=== PATIENT | male | born 1995 | race Caucasian/White ===

== ENCOUNTER 2018-08-19 10:12 | Emergency (ER) | payer OTHER ==
[2018-08-19 10:24] VITALS: PULSE 75; RESP 20; O2SAT 99
--- NOTE | 2018-08-19 12:22 | C.PDOC ---
History Of Present Illness 22 year old male presents to ED with complaint of pain to the right lower back that goes down the right buttock and to the right thigh. Patient states that he has had this pain intermittently for last couple of years. He states that the pain became worse yesterday and that is why he decided to come to the ED. Patient denies trauma, dysuria, incontinence, and retention. Time Seen by Provider: 08/19/18 11:16 Chief Complaint (Nursing): Lower Extremity Problem/Injury History Per: Patient History/Exam Limitations: no limitations Onset/Duration Of Symptoms: Days (1), Intermittent Episodes Current Symptoms Are (Timing): Still Present Past Medical History Reviewed: Historical Data, Nursing Documentation, Vital Signs Vital Signs: Last Vital Signs Temp 98.4 F 08/19/18 10:22 Pulse 75 08/19/18 10:22 Resp 20 08/19/18 10:22 BP 116/76 08/19/18 10:22 Pulse Ox 99 08/19/18 10:22 - Medical History PMH: No Chronic Diseases Surgical History: No Surg Hx Family History: States: Unknown Family Hx - Social History Hx Alcohol Use: No Hx Substance Use: No - Immunization History Hx Tetanus Toxoid Vaccination: No Hx Influenza Vaccination: No Review Of Systems Constitutional: Negative for: Fever, Chills, Weakness Genitourinary: Negative for: Dysuria, Incontinence, Other (retention) Musculoskeletal: Positive for: Back Pain (right lower back radiating into the right buttock ), Leg Pain (right thigh) Neurological: Negative for: Weakness, Numbness, Dizziness Physical Exam - Physical Exam Appears: Well, Non-toxic, No Acute Distress Skin: Normal Color, Warm, Dry Head: Atraumatic, Normacephalic Neck: Normal, Supple Chest: Symmetrical, No Deformity Respiratory: No Accessory Muscle Use Back: Straight Leg Raising (positive at 60 degrees) Extremity: Tenderness (posterior right buttock) Neurological/Psych: Oriented x3, Normal Speech, Normal Cognition ED Course And Treatment O2 Sat by Pulse Oximetry: 99 (in RA) - Other Rad L-Spine X-ray X-Ray: Interpreted by Me, Viewed By Me Interpretation: Accession No. : [id number]. Patient Name / ID : CESAR Nino / [id number]. Exam Date : 08/19/2018 11:42:51 ( Approved ). Study Comment : Sex / Age : M / 22Y. Creator : Prosper Luo MD. Dictator : Prosper Luo MD. Banking Center Manager : Office Services Manager : Prosper Luo MD. Approver2 : Report Date : 08/19/2018 12:32:46. My Comment : . Date of service: 08/19/2018. PROCEDURE: Radiographs of the Lumbar Spine. HISTORY: Pain. COMPARISON: No prior. FINDINGS: BONES: Normal alignment. No listhesis. No fracture. DISC SPACES: Unremarkable. OTHER FINDINGS: None. IMPRESSION: Unremarkable radiographs of the lumbar spine. Progress Note: Patient given Motrin PO and Valium PO. LS spine X-ray ordered for patient. Re-evaluation. Patient feels better. Discussed plan with patient who expresses understanding. All questions answered and there is agreement with the plan to discharge home with instructions. Patient stable for discharge. Return if symptoms persist or worsen. Disposition - Disposition Referrals: [facility] [Outside] Disposition: HOME/ ROUTINE Disposition Time: 12:20 Condition: STABLE Additional Instructions: Follow up in Clinic within 1-2 days. Return to ED if feel worse. Prescriptions: Lidocaine 5% [Lidoderm] 1 patch TP DAILY #30 patch Ibuprofen [Motrin Tab] 600 mg PO Q8 #30 tab predniSONE [predniSONE Tab] 2 tab PO DAILY #8 tab diaZEpam [Valium] 2 mg PO TID #9 tab Instructions: Sciatica (DC) Forms: [facility] (Swedish) - Clinical Impression Clinical Impression: Sciatica - PA / WATER POLLUTION SCIENTIST / Resident Statement MD/DO has reviewed & agrees with the documentation as recorded. (Danisha Arcos) - Scribe Statement The provider has reviewed the documentation as recorded by the Scribe (Danisha Arcos) All medical record entries made by the Scribe were at my direction and personally dictated by me. I have reviewed the chart and agree that the record accurately reflects my personal performance of the history, physical exam, medical decision making, and the department course for this patient. I have also personally directed, reviewed, and agree with the discharge instructions and disposition.
[2018-08-19 12:35] VITALS: BP 116/79; TEMP 97.8
--- NOTE | 2018-08-19 12:36 | RAD ---
Date of service: 08/19/2018 PROCEDURE: Radiographs of the Lumbar Spine. HISTORY: Pain COMPARISON: No prior. FINDINGS: BONES: Normal alignment. No listhesis. No fracture. DISC SPACES: Unremarkable. OTHER FINDINGS: None. IMPRESSION: Unremarkable radiographs of the lumbar spine.
== END 2018-08-19 12:35 | disposition home or self-care (01) ==
LOC: C.ER 10:12
DX: M54.30 Sciatica, unspecified side (principal)